=== PATIENT | female | born 1955 | race Caucasian/White ===

== ENCOUNTER 2020-01-02 18:46 | Emergency (ER) | payer MEDICARE, OTHER ==
[2020-01-02 19:10] LABS: BASOPHILS # (AUTO) 0.1 10^3/uL (0.0-0.1); BASOPHILS % (AUTO) 0.7 %; BILIRUBIN,URINE NEGATIVE (NEGATIVE); EOSINOPHILS # (AUTO) 0.2 10^3/uL (0.0-0.7); EOSINOPHILS % (AUTO) 1.9 %; GLUCOSE, URINE (UA) NEGATIVE (NEGATIVE); KETONES,URINE (UA) NEGATIVE (NEGATIVE); LEUKOCYTE ESTERASE, URINE TRACE (NEGATIVE); LYMPHOCYTES # (AUTO) 2.9 10^3/uL (1.5-3.5); LYMPHOCYTES % (AUTO) 32.3 %; MEAN CORPUSCULAR HEMOGLOBIN 32.5 pg (27.0-31.0); MEAN CORPUSCULAR HGB CONC 33.8 g/dL (32.0-36.0); MEAN CORPUSCULAR VOLUME 96.3 fL (81.0-99.0); MONOCYTES # (AUTO) 0.8 10^3/uL (0.0-1.0); MONOCYTES % (AUTO) 8.6 %; NEUTROPHILS % (AUTO) 55.8 %; NITRITE,URINE NEGATIVE (NEGATIVE); OCCULT BLOOD,URINE NEGATIVE (NEGATIVE); PH,URINE 6.5 PH (5.0-7.5); PLT - PLATELET COUNT 370 10^3/uL (130-450); PROTEIN,URINE NEGATIVE (NEGATIVE); RED BLOOD COUNT 4.61 10^6/uL (4.20-5.40); RED CELL DISTRIBUTION WIDTH 11.9 % (12.0-15.0); UROBILINOGEN,URINE 0.2 (NORMAL) E.U./dL (NORMAL)
[2020-01-02 19:11] LABS: CLARITY,URINE HAZY (CLEAR)
--- NOTE | 2020-01-02 19:17 | ED Physician Documentation ---
PD HPI ABD PAIN - Stated complaint Stated Complaint: ABD/BACK PX, FEMALE - Chief complaint Chief Complaint: Abd Pain - History obtained from History obtained from: Patient - History of Present Illness Timing - onset: Other (64-year-old woman donated her right kidney to her sister remotely. Has not had any problems with her remaining kidney but over the last 10 days has had waxing and waning left flank pain as well as some generalized abdominal discomfort.) Review of Systems Ten Systems: 10 systems reviewed and negative Constitutional: reports: Reviewed and negative Ears: reports: Reviewed and negative Nose: reports: Reviewed and negative Throat: reports: Reviewed and negative PD PAST MEDICAL HISTORY - Past Medical History Past Medical History: No - Past Surgical History Past Surgical History: Yes General: Other (Right nephrectomy, donated) - Present Medications Home Medications: Ambulatory Orders Medication Instructions Recorded Confirmed Amox/Clav 875/125 [Augmentin] 1 each PO Q12H #20 tablet 01/02/20 Omeprazole 20 mg PO DAILY 01/02/20 01/02/20 - Allergies Allergies/Adverse Reactions: Allergies Allergy/AdvReac Type Severity Reaction Status Date / Time No Known Drug Allergies Allergy Verified 01/02/20 18:52 - Living Situation Living Situation: reports: With spouse/s.o. - Family History Family history: reports: Non contributory PD ED PE NORMAL - Vitals Vital signs reviewed: Yes - General General: Alert and oriented X 3, No acute distress - Cardiac Cardiac: RRR, No murmur - Respiratory Respiratory: No respiratory distress, Clear bilaterally - Abdomen Abdomen: Normal bowel sounds, Soft, Non tender - Back Back: No CVA TTP - Neuro Neuro: Alert and oriented X 3, Normal speech Results - Vitals Vitals: Vital Signs - 24 hr 01/02/20 01/02/20 18:53 19:27 Temperature 36.7 C Heart Rate 84 80 Respiratory 20 16 Rate Blood Pressure 263/104 H 247/99 H O2 Saturation 100 98 Oxygen O2 Source Room air - Labs Labs: Laboratory Tests 01/02/20 01/02/20 01/02/20 19:04 19:04 19:04 WBC 9.0 RBC 4.61 Hgb 15.0 Hct 44.4 MCV 96.3 MCH 32.5 H MCHC 33.8 RDW 11.9 L Plt Count 370 MPV 9.0 Neut # (Auto) 5.0 Lymph # (Auto) 2.9 [place] # (Auto) 0.8 Eos # (Auto) 0.2 Baso # (Auto) 0.1 Absolute Nucleated RBC 0.00 Nucleated RBC % 0.0 Sodium 137 Potassium 3.7 Chloride 99 L Carbon Dioxide 25 Anion Gap 13.0 BUN 14 Creatinine 0.9 Estimated GFR (MDRD) 63 L Glucose 122 H Calcium 9.3 Total Bilirubin 1.0 AST 26 ALT 36 Alkaline Phosphatase 85 Total Protein 8.3 H Albumin 4.7 Globulin 3.6 Albumin/Globulin Ratio 1.3 Lipase 31 Urine Color YELLOW Urine Clarity HAZY Urine pH 6.5 Ur Specific [place] <=1.005 Urine Protein NEGATIVE Urine Glucose (UA) NEGATIVE Urine Ketones NEGATIVE Urine Occult Blood NEGATIVE Urine Nitrite NEGATIVE Urine Bilirubin NEGATIVE Urine Urobilinogen 0.2 (NORMAL) Ur Leukocyte Esterase TRACE H Urine RBC None Seen Urine WBC 6-10 H Ur Squamous Epith Cells MOD Squamous H Urine Bacteria Few Ur Microscopic Review INDICATED Urine Culture Comments NOT INDICATED 01/02/20 20:00 WBC RBC Hgb Hct MCV MCH MCHC RDW Plt Count MPV Neut # (Auto) Lymph # (Auto) [place] # (Auto) Eos # (Auto) Baso # (Auto) Absolute Nucleated RBC Nucleated RBC % Sodium Potassium Chloride Carbon Dioxide Anion Gap BUN Creatinine Estimated GFR (MDRD) Glucose Calcium Total Bilirubin AST ALT Alkaline Phosphatase Total Protein Albumin Globulin Albumin/Globulin Ratio Lipase Urine Color YELLOW Urine Clarity CLEAR Urine pH 6.0 Ur Specific [place] <=1.005 Urine Protein NEGATIVE Urine Glucose (UA) NEGATIVE Urine Ketones NEGATIVE Urine Occult Blood NEGATIVE Urine Nitrite NEGATIVE Urine Bilirubin NEGATIVE Urine Urobilinogen 0.2 (NORMAL) Ur Leukocyte Esterase TRACE H Urine RBC None Seen Urine WBC 6-10 H Ur Squamous Epith Cells NONE SEEN Urine Bacteria None Seen Ur Microscopic Review INDICATED Urine Culture Comments INDICATED PD MEDICAL DECISION MAKING - ED course ED course: 64-year-old woman with history of right nephrectomy presents with left-sided abdominal pain. Her major concern is 1 of renal colic or some sort of renal issue. Initial urinalysis was contaminated, but a subsequent clean-catch urinalysis was still mildly positive for signs of infection. She also had a CT notable for evidence of mild diverticulitis. Both of these issues should be well treated with Augmentin. We also discussed her blood pressure, she says she had not had her blood pressure checked in about 5 years and admits to a case of whitecoat hypertension. That said her numbers are fairly elevated she understands the need for close follow-up for this 2. Departure - Departure Disposition: 01 Home, Self Care Clinical Impression: Diverticulitis of gastrointestinal tract Urinary tract infection Qualifiers: Urinary tract infection type: acute cystitis Hematuria presence: without hematuria Qualified Code(s): N30.00 - Acute cystitis without hematuria Condition: Good Record reviewed to determine appropriate education?: Yes Instructions: ED Diverticulitis Prescriptions: Amox/Clav 875/125 [Augmentin] 1 each PO Q12H #20 tablet Comments: As discussed, after an episode of diverticulitis, I recommend following up with your doctor for referral for colonoscopy in about 8 weeks. Return for new or worsening symptoms. Your blood pressure was elevated today on check into the emergency department. This does not mean that you have hypertension, it is a common phenomenon to come to the emergency department and have elevated blood pressure. I recommend that you see your primary care physician within the week to have it rechecked when you are feeling better. We will culture your urine, the results should be done in 48-72 hours. If an antibiotic change is necessary we will call you. Return if worse in the meantime, especially if you develop increasing flank pain, fevers, or cannot keep down the medication. Discharge Date/Time: 01/02/20 20:50
[2020-01-02 19:24] LABS: ALBUMIN 4.7 g/dL (3.2-5.5); ALBUMIN/GLOBULIN RATIO 1.3 (1.0-2.2); CALCIUM 9.3 mg/dL (8.5-10.3); CREATININE 0.9 mg/dL (0.4-1.0); TOTAL PROTEIN 8.3 g/dL (6.7-8.2)
[2020-01-02 19:29] VITALS: BP 247/99
[2020-01-02 19:36] LABS: BACTERIA,URINE Few /HPF (None Seen); RBC,URINE None Seen /HPF (0-5); SQUAMOUS EPITHELIAL CELL,UR MOD Squamous (<= Few)
[2020-01-02 20:15] LABS: BILIRUBIN,URINE NEGATIVE (NEGATIVE); GLUCOSE, URINE (UA) NEGATIVE (NEGATIVE); KETONES,URINE (UA) NEGATIVE (NEGATIVE); LEUKOCYTE ESTERASE, URINE TRACE (NEGATIVE); NITRITE,URINE NEGATIVE (NEGATIVE); OCCULT BLOOD,URINE NEGATIVE (NEGATIVE); PROTEIN,URINE NEGATIVE (NEGATIVE); UROBILINOGEN,URINE 0.2 (NORMAL) E.U./dL (NORMAL)
[2020-01-02 20:16] LABS: CLARITY,URINE CLEAR (CLEAR)
[2020-01-02 20:22] LABS: BACTERIA,URINE None Seen /HPF (None Seen); RBC,URINE None Seen /HPF (0-5); SQUAMOUS EPITHELIAL CELL,UR NONE SEEN (<= Few)
--- NOTE | 2020-01-02 20:29 | CT Report ---
Reason: Left flank pain, history of right nephrectomy. Procedure Date: 01/02/2020 Accession Number: [id number] / [id number] Procedure: CT - Abdomen/Pelvis WO CPT Code: Final Report FULL RESULT: EXAM: CT ABDOMEN AND PELVIS EXAM DATE: 01/02/2020 08:14 PM. CLINICAL HISTORY: Left flank pain, history of right nephrectomy. COMPARISONS: None. TECHNIQUE: Routine helical CT imaging was performed through the abdomen and pelvis. IV contrast: None. Enteric contrast: No. Reconstructions: Coronal and sagittal. In accordance with CT protocol optimization, one or more of the following dose reduction techniques were utilized for this exam: automated exposure control, adjustment of mA and/or KV based on patient size, or use of iterative reconstructive technique. FINDINGS: Lung bases: Small to moderate hiatal hernia. Liver: Mild fatty liver with focal fatty sparing seen adjacent to the gallbladder. Gallbladder: Unremarkable. Bile ducts: Unremarkable. Pancreas: Unremarkable. Adrenals: Unremarkable Kidneys: Right nephrectomy. Left kidney appears unremarkable. No hydronephrosis. No urinary tract calculi are seen. Bowel: No acute bowel findings are seen. Moderate sigmoid colon diverticulosis with mild adjacent stranding. Mild descending colon diverticulosis. No free fluid or free air. No evidence for perforation or abscess. Pelvis: The bladder and remaining pelvic organs are unremarkable. Vasculature: No acute findings. Bones: No acute bone findings. IMPRESSION: 1. Moderate sigmoid colon diverticulosis with mild adjacent stranding concerning for mild acute diverticulitis. No evidence for perforation or abscess. Mild descending colon diverticulosis. 2. Otherwise, see above. RADIA
[2020-01-02] MEDS ORDERED: AMOX/CLAV 875 MG/125 MG TABLET PO STA (20:36)
== END 2020-01-02 20:50 | disposition home or self-care (01) ==
LOC: ED 18:46
DX: K57.32 Diverticulitis of large intestine without perforation or abscess without bleeding (principal); N30.00 Acute cystitis without hematuria; R03.0 Elevated blood-pressure reading, without diagnosis of hypertension
CPT/HCPCS: 36415; 74176; 80053; 81001; 83690; 85025; 87086; 99283; 99284; A9270; 81003

== ENCOUNTER 2020-01-11 17:46 | Emergency (ER) | payer MEDICARE, OTHER ==
[2020-01-11 18:16] LABS: BASOPHILS # (AUTO) 0.1 10^3/uL (0.0-0.1); BASOPHILS % (AUTO) 1.1 %; EOSINOPHILS # (AUTO) 0.3 10^3/uL (0.0-0.7); EOSINOPHILS % (AUTO) 5.7 %; LYMPHOCYTES # (AUTO) 1.1 10^3/uL (1.5-3.5); LYMPHOCYTES % (AUTO) 22.8 %; MEAN CORPUSCULAR HEMOGLOBIN 32.4 pg (27.0-31.0); MEAN CORPUSCULAR HGB CONC 33.6 g/dL (32.0-36.0); MEAN CORPUSCULAR VOLUME 96.5 fL (81.0-99.0); MEAN PLATELET VOLUME 9.7 fL (7.9-10.8); MONOCYTES # (AUTO) 0.5 10^3/uL (0.0-1.0); MONOCYTES % (AUTO) 10.4 %; NEUTROPHILS # (AUTO) 2.8 10^3/uL (1.5-6.6); NEUTROPHILS % (AUTO) 59.8 %; PLT - PLATELET COUNT 282 10^3/uL (130-450); RED BLOOD COUNT 4.63 10^6/uL (4.20-5.40); RED CELL DISTRIBUTION WIDTH 12.9 % (12.0-15.0); WHITE BLOOD COUNT 4.6 x10^3/uL (4.8-10.8)
[2020-01-11 18:18] LABS: GLUCOSE, URINE (UA) NEGATIVE (NEGATIVE); KETONES,URINE (UA) TRACE mg/dL (NEGATIVE); LEUKOCYTE ESTERASE, URINE NEGATIVE (NEGATIVE); NITRITE,URINE NEGATIVE (NEGATIVE); OCCULT BLOOD,URINE NEGATIVE (NEGATIVE); PH,URINE 6.5 PH (5.0-7.5); PROTEIN,URINE NEGATIVE (NEGATIVE); UROBILINOGEN,URINE 0.2 (NORMAL) E.U./dL (NORMAL)
[2020-01-11] MEDS ORDERED: IOVERSOL 320 100 ML VIAL IVP ONE ×2 (18:18→18:59)
[2020-01-11 18:27] LABS: BILIRUBIN,URINE SMALL (NEGATIVE); CLARITY,URINE CLEAR (CLEAR); ICTOTEST,URINE POSITIVE
[2020-01-11 18:32] LABS: ALBUMIN 4.4 g/dL (3.2-5.5); ALBUMIN/GLOBULIN RATIO 1.1 (1.0-2.2); BILIRUBIN,TOTAL 3.5 mg/dL (0.2-1.0); CALCIUM 9.4 mg/dL (8.5-10.3); CREATININE 0.8 mg/dL (0.4-1.0); TOTAL PROTEIN 8.3 g/dL (6.7-8.2)
[2020-01-11] MEDS ORDERED: SODIUM CHLORIDE 0.9% 1,000 ML IV STA (18:36)
--- NOTE | 2020-01-11 18:36 | ED Physician Documentation ---
PD HPI ABD PAIN - Stated complaint Stated Complaint: ABD PX - Chief complaint Chief Complaint: Abd Pain - History obtained from History obtained from: Patient - History of Present Illness Timing - onset: Last night Timing - details: Gradual onset Pain level max: 2 Pain level now: 2 Quality: Aching, Pain Location: LUQ, LLQ Improved by: Other (nothing) Worsened by: Other (nothing) Associated symptoms: Nausea. No: Fever, Vomiting, Hematemesis, Diarrhea, Constipation, Melena, Hematochezia, Dysuria, Hematuria Recently seen: Emergency Dept - Additional information Additional information: Patient is currently being treated for diverticulitis. Seen here a week ago for same. She states she started feeling increasingly bloated yesterday and that she had recurrence of her left-sided abdominal pain last night continuing through today. Some nausea but no vomiting. Nothing makes it better or worse. No fevers. No diarrhea. No constipation. Decreased appetite over the last 24 hours as well. Review of Systems Ten Systems: 10 systems reviewed and negative Constitutional: denies: Fever, Chills Nose: denies: Rhinorrhea / runny nose, Congestion Respiratory: denies: Cough GI: denies: Hematemesis, Bloody / black stool : denies: Dysuria Skin: denies: Rash Musculoskeletal: denies: Neck pain, Back pain Neurologic: denies: Headache PD PAST MEDICAL HISTORY - Past Medical History Past Medical History: Yes GI: Diverticulitis - Past Surgical History Past Surgical History: Yes General: Other - Present Medications Home Medications: Ambulatory Orders Medication Instructions Recorded Confirmed Amox/Clav 875/125 [Augmentin] 1 each PO Q12H #20 tablet 01/02/20 Omeprazole 20 mg PO DAILY 01/02/20 01/02/20 - Allergies Allergies/Adverse Reactions: Allergies Allergy/AdvReac Type Severity Reaction Status Date / Time No Known Drug Allergies Allergy Verified 01/02/20 18:52 - Social History Does the pt smoke?: Yes Smoking Status: Current every day smoker Does the pt drink ETOH?: Yes Does the pt have substance abuse?: Yes Substance Use and Type: Marijuana - Immunizations Immunizations are current?: Yes PD ED PE NORMAL - Vitals Vital signs reviewed: Yes - General General: Alert and oriented X 3, No acute distress - HEENT HEENT: Moist mucous membranes - Neck Neck: Supple, no meningeal sign - Cardiac Cardiac: RRR - Respiratory Respiratory: No respiratory distress, Clear bilaterally - Abdomen Abdomen: Soft, Non tender, Non distended - Derm Derm: Warm and dry - Extremities Extremities: No edema - Neuro Neuro: Alert and oriented X 3 Results - Vitals Vitals: Vital Signs - 24 hr 01/11/20 01/11/20 01/11/20 18:06 18:08 19:03 Temperature 36.6 C 36.7 C Heart Rate 72 75 65 Respiratory 16 16 18 Rate Blood Pressure 243/91 H 243/89 H 248/97 H O2 Saturation 98 99 98 01/11/20 21:01 Temperature Heart Rate 70 Respiratory 18 Rate Blood Pressure 214/84 H O2 Saturation 98 Oxygen O2 Source Room air - Labs Labs: Laboratory Tests 01/11/20 01/11/20 01/11/20 18:02 18:02 18:02 WBC 4.6 L RBC 4.63 Hgb 15.0 Hct 44.7 MCV 96.5 MCH 32.4 H MCHC 33.6 RDW 12.9 Plt Count 282 MPV 9.7 Neut # (Auto) 2.8 Lymph # (Auto) 1.1 L [place] # (Auto) 0.5 Eos # (Auto) 0.3 Baso # (Auto) 0.1 Absolute Nucleated RBC 0.00 Nucleated RBC % 0.0 PT INR APTT Sodium 135 Potassium 3.7 Chloride 98 L Carbon Dioxide 22 Anion Gap 15.0 H BUN 5 L Creatinine 0.8 Estimated GFR (MDRD) 72 L Glucose 135 H Calcium 9.4 Total Bilirubin 3.5 H AST 270 H ALT 616 H Alkaline Phosphatase 401 H Total Protein 8.3 H Albumin 4.4 Globulin 3.9 Albumin/Globulin Ratio 1.1 Lipase 28 Urine Color YELLOW Urine Clarity CLEAR Urine pH 6.5 Ur Specific [place] <=1.005 Urine Protein NEGATIVE Urine Glucose (UA) NEGATIVE Urine Ketones TRACE Urine Occult Blood NEGATIVE Urine Nitrite NEGATIVE Urine Bilirubin SMALL H Urine Urobilinogen 0.2 (NORMAL) Ur Leukocyte Esterase NEGATIVE Ur Microscopic Review NOT INDICATED Urine Culture Comments NOT INDICATED 01/11/20 18:02 WBC RBC Hgb Hct MCV MCH MCHC RDW Plt Count MPV Neut # (Auto) Lymph # (Auto) [place] # (Auto) Eos # (Auto) Baso # (Auto) Absolute Nucleated RBC Nucleated RBC % PT 10.3 INR 0.9 APTT 30.8 Sodium Potassium Chloride Carbon Dioxide Anion Gap BUN Creatinine Estimated GFR (MDRD) Glucose Calcium Total Bilirubin AST ALT Alkaline Phosphatase Total Protein Albumin Globulin Albumin/Globulin Ratio Lipase Urine Color Urine Clarity Urine pH Ur Specific [place] Urine Protein Urine Glucose (UA) Urine Ketones Urine Occult Blood Urine Nitrite Urine Bilirubin Urine Urobilinogen Ur Leukocyte Esterase Ur Microscopic Review Urine Culture Comments - Rads (name of study) CT abd/pelvis Radiology: Prelim report reviewed, EMP read contemporaneously, See rad report (1. Diverticulosis, no CT evidence of diverticulitis. 2. Probable fatty liver. 3. Status post right nephrectomy. ) RUQ US Radiology: Prelim report reviewed, EMP read contemporaneously, See rad report (Moderate fatty liver. Normal gallbladder. No acute findings are seen. ) PD MEDICAL DECISION MAKING - ED course Complexity details: reviewed results, re-evaluated patient, considered differential, d/w patient ED course: Patient with elevation of her bilirubin, transaminases and alk phos. No acute findings on CT or ultrasound. Does have a fatty liver. Does drink approximately 6-8 beers per night. LFTs were normal before starting Augmentin. We will stop the Augmentin. Likely drug-induced. Patient is well-appearing, nontoxic. Afebrile. No further diverticulitis on CT scan. Patient counseled regarding signs and symptoms for which I believe and urgent re-evaluation would be necessary. Patient with good understanding of and agreement to plan and is comfortable going home at this time This document was made in part using voice recognition software. While efforts are made to proofread this document, sound alike and grammatical errors may occur. denies tylenol use states hypertension is chronic and only in the ED. Departure - Departure Disposition: 01 Home, Self Care Clinical Impression: Liver function abnormality Condition: Good Instructions: ED Abdominal Pain Unkn Cause Follow-Up: Duong Keller MD [Primary Care Provider] - Within 1 week Comments: You have significant elevation of your liver function test tonight. This may be related to the Augmentin you have been taking. We will have you stop this medication. We will have you recheck your liver function tests in approximately 1 week with your doctor. Return if you worsen. Sometimes these liver abnormalities can last for several months. But normally resolve quickly after stopping the medication. You also have fatty liver disease and the alcohol use will be damaging your liver as well. You should try to cut back on the alcohol intake while your liver is recovering. Discharge Date/Time: 01/11/20 21:01
--- NOTE | 2020-01-11 19:18 | CT Report ---
Reason: L abdominal pain, h/o diverticulitis Procedure Date: 01/11/2020 Accession Number: [id number] / [id number] Procedure: CT - Abdomen/Pelvis W CPT Code: Final Report FULL RESULT: EXAM: CT ABDOMEN AND PELVIS EXAM DATE: 01/11/2020 06:56 PM. CLINICAL HISTORY: L abdominal pain, h/o diverticulitis. COMPARISONS: ABDOMEN/PELVIS W/O 01/02/2020 8:08 PM. TECHNIQUE: Routine helical CT imaging was performed through the abdomen and pelvis. IV contrast: OPTIRAY 320, 100 cc. Enteric contrast: No. Reconstructions: Coronal and sagittal. In accordance with CT protocol optimization, one or more of the following dose reduction techniques were utilized for this exam: automated exposure control, adjustment of mA and/or KV based on patient size, or use of iterative reconstructive technique. FINDINGS: Lung Bases: Unremarkable. Liver: Probably some underlying fatty liver, no focal masses. Portal vein is patent. Gallbladder/Bile Ducts: Unremarkable. Spleen: Normal. Pancreas: Normal. Adrenal Glands: Normal. Kidneys: Status post right nephrectomy (kidney donor per hx). 6 mm cyst in the left kidney. Too small to further characterize. No stones or hydronephrosis and the left kidney. Peritoneal Cavity/Bowel: Small hiatal hernia. Diverticulosis is present, and is greatest in the sigmoid colon. No CT evidence of diverticulitis. No free air or free fluid. The appendix is well visualized and normal. Pelvic Organs: Status post hysterectomy. Urinary bladder is normal. Vasculature: No aortic aneurysm. Retroaortic left renal vein. Bones: No significant abnormality. Other: None. IMPRESSION: 1. Diverticulosis, no CT evidence of diverticulitis. 2. Probable fatty liver. 3. Status post right nephrectomy. RADIA
--- NOTE | 2020-01-11 20:21 | Ultrasound Report ---
Reason: elevated LFTs, RUQ pain Procedure Date: 01/11/2020 Accession Number: [id number] / [id number] Procedure: US - Abdomen Limited CPT Code: Final Report FULL RESULT: EXAM: ABDOMEN ULTRASOUND LIMITED, RUQ EXAM DATE: 01/11/2020 07:45 PM. CLINICAL HISTORY: Elevated LFTs, RUQ pain. Right upper quadrant pain. COMPARISON: ABDOMEN/PELVIS W 01/11/2020 6:46 PM. TECHNIQUE: Real-time scanning was performed with static images obtained. FINDINGS: Liver: Moderate fatty liver with diffuse hyperechogenicity. Liver length 17.2 cm. Main portal vein flow: Hepatopetal. Gallbladder: The gallbladder appears within normal limits. No gallbladder wall thickening or pericholecystic fluid. The gallbladder is partially contracted. No gallstones. No pericholecystic fluid. Biliary System: Common duct measures 6 mm. No intrahepatic or extrahepatic ductal dilatation. Other: Surgically absent right kidney. Donated right kidney. IMPRESSION: Moderate fatty liver. Normal gallbladder. No acute findings are seen. RADIA
[2020-01-11 20:40] LABS: INR 0.9 (0.8-1.2); PT - PROTHROMBIN TIME 10.3 secs (9.9-12.6)
[2020-01-11 20:47] LABS: PARTIAL THROMBOPLASTIN TIME 30.8 secs (24.9-33.3)
[2020-01-11 21:02] VITALS: BP 214/84
== END 2020-01-11 21:01 | disposition home or self-care (01) ==
LOC: ED 17:46
DX: R74.0 Nonspecific elevation of levels of transaminase and lactic acid dehydrogenase [LDH] (principal); R74.8 Abnormal levels of other serum enzymes; R79.89 Other specified abnormal findings of blood chemistry; R10.12 Left upper quadrant pain; R10.32 Left lower quadrant pain; R11.0 Nausea; K76.0 Fatty (change of) liver, not elsewhere classified; Z87.19 Personal history of other diseases of the digestive system; I10 Essential (primary) hypertension; F17.200 Nicotine dependence, unspecified, uncomplicated
CPT/HCPCS: 36415; 74177; 76705; 80053; 81003; 83690; 85025; 85610; 85730; 96360; 96361; 99284; 99285; Q9967; 81001; 87086

== ENCOUNTER 2020-11-02 11:28 | Outpatient (CLI) | payer MEDICARE, OTHER ==
--- NOTE | 2020-11-02 12:12 | XRAY Report ---
PROCEDURE: Cervical Spine 2 View INDICATIONS: NECK PX TECHNIQUE: 3 view(s) of the cervical spine were acquired. COMPARISON: None. FINDINGS: Straightening of the normal lordotic curvature. Scattered multilevel endplate spurring and diffuse fa cet arthropathy.Trace anterolisthesis of C2 on C3. Moderate narrowing of the C5-C6 and C6-C7 disc spa ese. Mild narrowing of the C7-T1 disc space. Scattered carotid atherosclerotic calcified plaque. IMPRESSION: Straightening of the normal lordotic curvature. Multilevel cervical spondylosis most pronounced at the mid to lower cervical spine as above. Carotid atherosclerosis Reviewed by: Chandler Ray MD on 11/02/2020 12:11 PM PDT Approved by: Chandler Ray MD on 11/02/2020 12:11 PM PDT Station ID: [id number]
== END 2020-11-02 11:29 | disposition home or self-care (01) ==
LOC: DI.S 11:28
PROVIDERS: ATTEND Physician Assistant
DX: M54.2 Cervicalgia (principal); M47.812 Spondylosis without myelopathy or radiculopathy, cervical region

== ENCOUNTER 2022-12-08 07:09 | Outpatient (CLI) | payer MEDICARE, BC | END 2022-12-08 23:59 | disposition short-term general hospital (02) | LOC: EMS 07:09 | DX: R56.9 Unspecified convulsions (principal) | CPT/HCPCS: A0425; A0429 ==